=== PATIENT | male | born 1955 | race African-American/Black ===

== ENCOUNTER 2024-04-21 17:43 | Emergency (ER) | payer MEDICAID ==
[~2024-04-21] VITALS: Ht 175.3 cm; Wt 73.0 kg
[2024-04-21 17:46] VITALS: O2SAT 98
[2024-04-21 17:50] VITALS: PULSE 72; RESP 15
[2024-04-21] MEDS: PREDNISONE 20MG TABLET PO STA (17:50)
[2024-04-21] MEDS: IPRATROPIUM BROMIDE (0.02%) 0.5MG/2.5ML NEB HHN STA (17:50)
[2024-04-21] MEDS: ALBUTEROL (0.083%) 2.5MG/3ML NEB HHN SCH (17:50)
[2024-04-21 18:43] LABS: BASOPHILS % 0.4 % (0.0-2.0); EOSINOPHILS % 1.2 % (0.0-5.0); HEMATOCRIT. 46.8 % (42.0-52.0); HEMOGLOBIN. 14.9 g/dL (14.0-18.0); MEAN CORPUSCULAR HGB CONC 31.8 g/dL (31.0-37.0); MEAN CORPUSCULAR VOLUME 91.1 fL (80.0-94.0); MEAN PLATELET VOLUME 6.8 fl (7.4-10.4); MONOCYTES % 6.6 % (2.0-8.0); NEUTROPHILS % 48.8 % (40.0-76.0); PLATELET 195 x1000/uL (130-400); RED BLOOD CELL COUNT 5.14 mill/uL (4.7-6.1); RED CELL DISTRIBUTION WIDTH 13.9 % (11.6-14.6); WHITE BLOOD COUNT 5.4 x1000/uL (4.5-11.0)
[2024-04-21 18:44] LABS: CHLORIDE 106 mEq/L (98-107); POTASSIUM 3.8 mEq/L (3.5-5.1); SODIUM 143 mEq/L (136-145)
[2024-04-21 18:45] LABS: CALCIUM 9.3 mg/dL (8.7-10.4); CARBON DIOXIDE 33 mEq/L (21-32)
[2024-04-21 18:50] LABS: CREATININE 1.2 mg/dL (0.6-1.3); GLUCOSE 109 mg/dL (70-105); UREA NITROGEN BLOOD 24 mg/dL (9-23)
[2024-04-21 18:51] LABS: TROPONIN I HIGH SENSITIVITY 12 ng/L (3.0-53)
[2024-04-21] MEDS ORDERED: GUAI-450 MT (19:02)
[2024-04-21] MEDS ORDERED: ALBU18HF2 IH (19:02)
[2024-04-21] MEDS ORDERED: P50 MT (19:02)
[2024-04-21 19:14] VITALS: PULSE 76; RESP 20
[2024-04-21 19:30] VITALS: PULSE 75; RESP 15
[2024-04-21 19:54] VITALS: BP 159/66; PULSE 70; RESP 16; TEMP 36.89184; O2SAT 98
== END 2024-04-21 19:56 | disposition home or self-care (01) ==
LOC: ER 17:43
DX: J45.901 Unspecified asthma with (acute) exacerbation (principal); I10 Essential (primary) hypertension
CPT/HCPCS: 80048; 83880; 85025; 84484; 36415; 71045; 94640; 99285; Z7610 ×3